=== PATIENT | female | born 2000 | race Caucasian/White ===

== ENCOUNTER 2025-01-27 20:55 | Emergency (ER) | payer OTHER, SELFPAY ==
[2025-01-27 20:57] VITALS: BP 139/90
[2025-01-27 21:11] LABS: Urine Albumin Negative (Neg - Trace); Urine Bilirubin Negative (Negative); Urine Character Clear (Clear); Urine Color Yellow; Urine Glucose Negative (Negative); Urine Ketone Negative (Negative); Urine Leukocyte 3+ (Negative); Urine Nitrite Negative (Negative); Urine Occult Blood Negative (Negative); Urine Urobilinogen Negative (Neg - 1+)
[2025-01-27 21:19] LABS: Urine Bacteria Few (Negative); Urine Red Blood Cell 0-2 /HPF (0-2); Urine Yeast Few (Negative)
--- NOTE | 2025-01-27 21:49 | ED.GENMED ---
History of Present Illness
General
Chief Complaint: Urinary Symptoms
Source: patient
Exam Limitations: none
Time Seen by Provider: 01/27/25 21:41
History of Present Illness
History of Present Illness:
See MDM
Past History
Past History
ED Past Medical History: None
ED Past Surgical History: None
Social History
Tobacco: Non-smoker
Phy Exam
Physical Exam
Physical Exam:
See MDM
Course
Orders/Labs/Results
Orders:
Orders
01/27/25 21:04
Urinalysis Reflex To Culture Urgent
Date Specimen was Collected: 01/27/25
Time Specimen was Collected: 20:56
Urine Microscopic Reflex Cult Urgent
Urine Culture Urgent
JENNIFER Source: U
Specimen Description:
Date Specimen was Collected: 01/27/25
Time Specimen was Collected: 20:56
01/27/25 21:45
Amoxicillin 875 mg/Clav 125 mg [Augmentin 875 mg/125 mg] 1 tablet PO NOW STA
Phenazopyridine HCl [Pyridium] 100 mg PO NOW STA
Abnormal Lab Results
01/27/25
21:04
Leukocyte Esterase Rfl 3+ A
(Negative)
Urine Bacteria (Reflex) Few A
(Negative)
Urine Yeast Few A
(Negative)
Vital Signs
Initial and Last Documented VS:
Initial Vital Signs
Temp Pulse Resp BP Pulse Ox
98.4 F 67 15 139/90 100
01/27/25 20:57 01/27/25 20:57 01/27/25 20:57 01/27/25 20:57 01/27/25 20:57
Last Documented Vital Signs
Temp Pulse Resp BP Pulse Ox
98.4 F 67 15 139/90 100
01/27/25 20:57 01/27/25 20:57 01/27/25 20:57 01/27/25 20:57 01/27/25 20:57
MDM/Problems Addressed
Differential Diagnosis Includes:
HPI and MDM Narrative:
24-year-old female presenting for evaluation of increased urinary frequency and burning. Patient is concerned she has a UTI. She took a test at home and it was positive. She is currently on amoxicillin for an ear infection which is improving.
There is concern that she has a UTI that is resistant to amoxicillin. Will transition to Augmentin for the next 5 days to treat both. Discussed return precautions
Physical exam
General: Well appearing and non-toxic
HEENT: protecting airway
Neck: appears supple
CV: No evidence of cyanosis
Resp: No accessory muscle use
Abd: Non-distended. Soft. Very mild suprapubic tenderness but no rebound
Extremities: No deformities
Neuro: alert
Psych: Normal affect
Skin: Intact
Problems Addressed including Acute and Chronic Conditions affecting care:
1. UTI
Acuity: acute
Prognosis: stable
Details: Will start Augmentin
Differential Diagnosis (but not limited to): UTI, interstitial cystitis
Testing considered: Blood work
Drug therapy (if applicable): OTC meds, please see d/c instruction regarding Rx drugs
Amount and/or Complexity of Data Reviewed
Clinical info obtained from: Patient
External data reviewed: N/A
Labs I independently reviewed (but not limited to): Urinalysis
Radiology: N/A
Pulse Ox: not hypoxic
EKG independently reviewed: N/A
Clinician Oncology: N/A
Critical Care: N/A
Risk of Complication:
Social Determinants of health: Good social support
Discussed with other providers: N/A
Escalation of Care includes Admit/Obs: After being observed in the Emergency Department, pt stable for discharge.
Occasional wrong word or 'sound a like' substitutions may have occurred due to the inherent limitations of voice recognition software. Read the chart carefully and recognize, using context, where substitutions have occurred.
*Critical Care Note
Total Time (30-74mins, 75-104mins- exclusive of procedures): Not Applicable
ED Attending Note
-
Portions of this chart may have been created with voice recognition software.� Occasional wrong word or��sound alike� substitutions may have occurred due to the inherent limitations of voice recognition software.
Discharge Plan
Departure
Patient Disposition: Home (Routine Discharge)
Date of Disposition: 01/27/25
Time of Disposition: 21:49
Patient with high blood pressure during this ER visit?: No
Discharge Problem:
UTI (urinary tract infection)
Instructions: Urinary Tract Infection, Adult (DC)
Prescriptions:
New
amoxicillin-pot clavulanate 875-125 mg tablet
1 tab PO BID 5 Days Qty: 10 0RF
phenazopyridine [Pyridium] 100 mg tablet
100 mg PO TID PRN (Reason: Pain) Qty: 6 0RF
No Action
norgestimate-ethinyl estradiol [Ddv-Bw-Sihwib] 1 EACH tablet
1 ea PO DAILY
duloxetine 30 mg
30 mg PO 1XD
Referrals:
Adeline Coleman CRNP [Family Provider] -
Activity Restrictions/Additional Instructions:
Please return for any worsening symptoms.
You may return at any time if you have further concerns.
Please follow up with your doctor at the first available appointment, preferably this week.
Stop the amoxicillin. Please take the Augmentin for the next 5 days.
Thank you for choosing [facility].
Interventions
Interventions:
*Risk Screen - Suicide Last Done: 01/27/25 20:57
*General Assessment Last Done: 01/27/25 20:57
*Neglect/Abuse Screening Last Done: 01/27/25 20:57
*ED COVID-19 Vaccine History Last Done: 01/27/25 20:57
ED-Female Genitourinary Assessment Last Done: 01/27/25 21:22
Discharge Date and Time
Print Language: [id number]
[2025-01-27] MEDS: AUGMENTIN 875 MG/125 MG 1 TABLET PO (21:52)
[2025-01-27] MEDS: Pyridium 100 MG PO (21:52)
== END 2025-01-27 22:02 | disposition home or self-care (01) ==
LOC: EMR 20:55
PROVIDERS: Emergency Medicine; EMERGENCY PHYSICIAN Student in an Organized Health Care Education/Training Program; FAMILY PHYSICIAN Nurse Practitioner Adult Health
DX: N39.0 Urinary tract infection, site not specified (principal)
CPT/HCPCS: 99282; 81003; 81015; 87086

== ENCOUNTER → 2025-01-28 11:19 | Outpatient (REF) | payer OTHER, SELFPAY ==
[2025-01-28 12:29] LABS: % Basophils 1.1 % (0-2); % Eosinophils 8.6 % (0-6); % Immature Granulocytes 0.1 % (0-0.5); % Lymphocytes 36.2 % (20.5-51.1); % Monocytes 7.9 % (1.7-9.3); % Neutrophils 46.1 % (42.2-75.2); Absolute Basophils 0.1 10^3/uL (0-0.2); Absolute Eosinophils 0.6 10^3/uL (0-0.7); Absolute Lymphocytes 2.7 10^3/uL (1.2-3.4); Absolute Monocytes 0.6 10^3/uL (0.1-0.6); Absolute Neutrophils 3.4 10^3/uL (1.4-6.5); Hematocrit 41.6 % (37.0-47.0); Hemoglobin 13.7 g/dL (12.0-16.0); Mean Corp Hgb Conc. 32.9 g/dL (33.0-37.0); Mean Corpuscular Hgb 29.8 pg (27.0-31.0); Mean Corpuscular Volume 90.4 fL (81.0-99.0); Mean Platelet Volume 9.4 fL (7.4-10.4); Nucleated Red Blood Cells % 0 %; Platelet Count 286 10^3/uL (130-400); Red Cell Dist. Width 12.1 % (11.5-14.5); White Blood Cell Count 7.4 10^3/uL (4.8-10.8)
[2025-01-28 12:49] LABS: ALT (SGPT) 17 U/L (0-35); AST (SGOT) 22 U/L (14-36); Albumin 4.5 g/dl (3.5-5.0); Alkaline Phosphatase 66 U/L (38-126); Blood Urea Nitrogen 15 mg/dl (7-17); Calcium 10.1 mg/dl (8.4-10.2); Carbon Dioxide 28 mmol/L (22-30); Chloride 103 mmol/L (98-107); Glucose 78 mg/dl (70-99); Potassium 4.3 mmol/L (3.5-5.1); Sodium 140 mmol/L (135-145); Total Bilirubin 0.5 mg/dl (0.2-1.3); Total Protein 7.6 g/dl (6.3-8.2); eGFR > 60.00
== END ==
LOC: REG 11:19
PROVIDERS: ATTENDING PHYSICIAN Nurse Practitioner Adult Health
DX: R39.9 Unspecified symptoms and signs involving the genitourinary system (principal); H66.002 Acute suppurative otitis media without spontaneous rupture of ear drum, left ear
CPT/HCPCS: 36415; 80053; 85025

== ENCOUNTER → 2025-06-10 08:46 | Outpatient (REF) | payer OTHER, SELFPAY ==
[2025-06-10 10:18] LABS: HDL Cholesterol 58 mg/dl; LDL Cholesterol, Calculated 127 mg/dl; Very Low Density Lipoprotein 12 mg/dl (0-30)
[2025-06-10 10:45] LABS: FSH 1.6 mIU/ml
== END ==
LOC: REG 08:46
PROVIDERS: ATTENDING PHYSICIAN Nurse Practitioner Adult Health
DX: Z13.220 Encounter for screening for lipoid disorders (principal); Z13.29 Encounter for screening for other suspected endocrine disorder; N92.6 Irregular menstruation, unspecified; L67.8 Other hair color and hair shaft abnormalities
CPT/HCPCS: 36415; 80061; 82627; 82670; 83001; 83002; 83498; 84146; 84270; 84402; 84403; 84443

== ENCOUNTER → 2025-06-15 10:39 | Outpatient (REF) | payer OTHER, SELFPAY | LOC: REG 10:39 | PROVIDERS: ATTENDING PHYSICIAN Nurse Practitioner Adult Health | DX: R79.89 Other specified abnormal findings of blood chemistry (principal); E66.3 Overweight | CPT/HCPCS: 36415; 82157; 82627; 84270; 84402; 84403 ==

== ENCOUNTER → 2025-06-23 08:52 | Outpatient (REF) | payer OTHER, SELFPAY ==
[2025-06-23 10:51] LABS: Cortisol, Random 11.3 ug/dl
== END ==
LOC: REG 08:52
PROVIDERS: ATTENDING PHYSICIAN Nurse Practitioner Adult Health
DX: R79.89 Other specified abnormal findings of blood chemistry (principal); E22.1 Hyperprolactinemia
CPT/HCPCS: 36415; 82533; 83498; 84146; 84270; 84402; 84403

== ENCOUNTER → 2025-06-28 08:23 | Outpatient (REF) | payer OTHER, SELFPAY | LOC: HWRAD 08:23 | PROVIDERS: ATTENDING PHYSICIAN Nurse Practitioner Adult Health | DX: R79.89 Other specified abnormal findings of blood chemistry (principal); N92.6 Irregular menstruation, unspecified | CPT/HCPCS: 76830; 76856 ==

== ENCOUNTER → 2025-07-28 09:35 | Outpatient (REF) | payer OTHER, SELFPAY ==
[2025-07-28 12:23] LABS: Folate 5.1 ng/ml (2.76-20); Vitamin B12 294 pg/ml (239-931)
== END ==
LOC: REG 09:35
PROVIDERS: ATTENDING PHYSICIAN Nurse Practitioner Adult Health
DX: G24.5 Blepharospasm (principal)
CPT/HCPCS: 36415; 82607; 82746